=== PATIENT | male | born 1995 | race African-American/Black ===

== ENCOUNTER 2020-05-16 07:54 | Emergency (ER) | payer MEDICAID, OTHER ==
[~2020-05-16] VITALS: Ht 180.3 cm; Wt 113.6 kg
[~2020-05-16 07:54] MED LIST: NOCURR
[2020-05-16] MEDS ORDERED: BACITRACIN 0.9 GM PACKET OINTMENT TP ONE (08:45)
[2020-05-16] MEDS ORDERED: DOXYCYCLINE HYCLATE 100 MG TABLET PO ONE (09:15)
[2020-05-16] MEDS ORDERED: ACETAMINOPHEN 500 MG TABLET PO ONE (09:15)
[2020-05-16 10:08] VITALS: BP 131/71
== END 2020-05-16 10:20 | disposition home or self-care (01) ==
LOC: EMS 07:57
DX: L03.011 Cellulitis of right finger (principal); F12.90 Cannabis use, unspecified, uncomplicated
CPT/HCPCS: 10060